=== PATIENT | male | born 1965 | race Caucasian/White ===

== ENCOUNTER 2022-01-21 13:53 | Emergency (ER) | payer OTHER ==
[2022-01-21] MEDS ORDERED: HYDROmorphone 1 MG/ML Syringe IVPUSH ONE (13:56)
[2022-01-21] MEDS ORDERED: Ondansetron 4 MG/2 ML SDV IVPUSH ONE (13:56)
[2022-01-21] MEDS ORDERED: Sodium Chloride 0.9% 1,000 ML IV ONE (14:00)
[2022-01-21] MEDS: Sodium Chloride 0.9% 10 ML Syringe FLUSH PRN ×2 (14:14→15:59)
[2022-01-21] MEDS ORDERED: HYDROmorphone 0.5 MG/0.5 ML Syringe ONE (15:53)
[2022-01-21] MEDS ORDERED: HYDROmorphone 0.5 MG/0.5 ML Syringe IVPUSH ONE (15:57)
== END 2022-01-21 16:00 ==
LOC: LL.ED 13:53
DX: S32.020A Wedge compression fracture of second lumbar vertebra, initial encounter for closed fracture (principal); Z88.5 Allergy status to narcotic agent; W17.89XA Other fall from one level to another, initial encounter
CPT/HCPCS: 72131; 94761; 96361; 96374; 96375; 96376; 99285; J1170; J2405; J3490; J7030